=== PATIENT | female | born 1955 | race Asian ===

== ENCOUNTER 2018-02-04 17:30 | Emergency (ER) | payer BC ==
[~2018-02-04] VITALS: Ht 152.4 cm; Wt 56.9 kg
[2018-02-04 17:32] VITALS: BP 132/74; PULSE 61; RESP 16; TEMP 98; O2SAT 100
[2018-02-04] MEDS ORDERED: PANT20TA2 PO (18:09)
[2018-02-04] MEDS ORDERED: ATOR20TA15 PO (18:09)
[2018-02-04] MEDS ORDERED: CYCL10TA PO (18:09)
[2018-02-04] MEDS ORDERED: METHI10 PO (18:09)
[2018-02-04] MEDS ORDERED: KETO10 PO (18:09)
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
[2018-03-04] MEDS ORDERED: METH5TAB4 PO (08:36)
[2018-03-04] MEDS ORDERED: PANT20TA2 PO (08:37)
== END 2018-02-04 18:28 | disposition left against medical advice (07) ==
LOC: PHEFT 17:30
DX: M54.9 Dorsalgia, unspecified (principal)
CPT/HCPCS: 99281; 99282

== ENCOUNTER → 2018-03-04 | Outpatient (CLI) | payer BC ==
[~2018-03-04] MED LIST: ATOR20TA15 PO; CYCL10TA PO; HYDR-3583 PO; KETO10 PO; METH5TAB4 PO; METHI10 PO; PANT20TA2 PO
--- NOTE | 2018-03-04 09:16 | RADRPT ---
EXAM DATE/TIME: 03/04/2018 08:53 [facility] COMPARISON: No previous studies available for comparison. INDICATIONS : Evaluate for pneumonia, pneumothorax, and communicable diseases. Pre-op T-12 Kyphoplasty. MEDICAL HISTORY : None. SURGICAL HISTORY : None. ENCOUNTER: Initial ACUITY: 1 day PAIN SCORE: 0/10 LOCATION: Bilateral chest FINDINGS: Moderate compression deformity involving what appears to be L1 is noted and is indeterminate in age. Kyphosis is noted at the level of the compression deformity. The heart is normal. The pulmonary vascu lar pattern is normal. The lungs are clear. CONCLUSION: 1. Moderate compression deformity involving what appears to be the L1 vertebral body of indeterminate age. Plain films of the lumbar spine would be helpful to confirm this level if not already performed at outside institution. Kyphosis of the spine at this level. 2. No acute cardiopulmonary disease. Devyn Leonardo MD on March 04, 2018 at 9:11 Board Certified Radiologist. This report was verified electronically.
[2018-03-04 09:24] LABS: BILIRUBIN, URINE NEG (NEG); BLOOD, URINE NEG (NEG); GLUCOSE,URINE NEG (NEG); KETONE, URINE NEG (NEG); NITRITE,URINE NEG (NEG); PH, URINE 7.5 (5.0-8.5); URINE COLOR LIGHT-YELLOW (YELLW/STRAW); URINE LEUKOCYTE ESTERASE NEG (NEG)
[2018-03-04 09:27] LABS: PROTHROMBIN TIME - PATIENT 9.9 SEC (9.8-11.6)
[2018-03-04 09:28] LABS: BASOPHIL % 0.6 % (0.0-2.0); EOSINOPHIL # 0.4 TH/MM3 (0-0.4); EOSINOPHIL % 5.8 % (0.0-4.0); HEMATOCRIT 39.1 % (35.0-46.0); HEMOGLOBIN 13.5 GM/DL (11.6-15.3); LYMPH % 29.9 % (9.0-44.0); MEAN CORPUSCULAR HEMOGLOBIN 30.4 PG (27.0-34.0); MEAN CORPUSCULAR HGB CONC 34.5 % (32.0-36.0); MONO % 4.7 % (0.0-8.0); MONOCYTE # 0.3 TH/MM3 (0-0.9); PLATELET COUNT 244 TH/MM3 (150-450); RED BLOOD COUNT 4.44 MIL/MM3 (4.00-5.30); RED CELL DISTRIBUTION WIDTH 13.7 % (11.6-17.2); WHITE BLOOD COUNT 6.8 TH/MM3 (4.0-11.0)
[2018-03-04 09:48] LABS: ALBUMIN 4.4 GM/DL (3.4-5.0); AST (GOT) 19 U/L (15-37); BLOOD UREA NITROGEN 17 MG/DL (7-18); CALCIUM 9.3 MG/DL (8.5-10.1); CHLORIDE 104 MEQ/L (98-107); CREATININE 0.83 MG/DL (0.50-1.00); GLOMERULAR FILTRATION RATE 69 ML/MIN (>89); GLUCOSE,FASTING 85 MG/DL (74-99); SODIUM (NA) 139 MEQ/L (136-145)
[2018-03-04 09:50] LABS: ALT (GPT) 24 U/L (10-53); BICARBONATE 26.9 MEQ/L (21.0-32.0)
[2018-03-04 09:52] LABS: ALKALINE PHOSPHATASE 116 U/L (45-117); TOTAL BILIRUBIN ADULT 0.4 MG/DL (0.2-1.0)
--- NOTE | 2018-03-04 21:02 | EKG ---
Date Performed: 03/04/2018 Time Performed: 08:22:46 PTAGE: 62 years EKG: SINUS BRADYCARDIA POSSIBLE LEFT ATRIAL ENLARGEMENT NONSPECIFIC T-WAVE ABNORMALITY BORDERLIN E ECG NO PREVIOUS TRACING DOCTOR: Binh Longo Interpretating Date/Time 03/04/2018 21:00:23
== END ==
LOC: CPRE 07:55
PROVIDERS: ATTEND Neurological Surgery
DX: Z01.812 Encounter for preprocedural laboratory examination (principal); Z01.811 Encounter for preprocedural respiratory examination; Z01.810 Encounter for preprocedural cardiovascular examination; M48.56XA Collapsed vertebra, not elsewhere classified, lumbar region, initial encounter for fracture; R00.1 Bradycardia, unspecified
CPT/HCPCS: 36415; 71046; 80053; 81001; 85025; 85610; 85730; 87640; 87641; 93005

== ENCOUNTER 2018-03-06 09:34 | Observation (INO) | payer BC ==
[~2018-03-06] VITALS: Ht 152.4 cm; Wt 55.0 kg
[~2018-03-06 09:34] MED LIST changes: -HYDR-3583 PO; -KETO10 PO; -METHI10 PO
[2018-03-06] MEDS ORDERED: METOPROLOL TARTRATE 25 MG TAB PO PRN (10:15)
[2018-03-06] MEDS ORDERED: POVIDONE IODINE 5% (ANTISEPSIS KIT) 4 APPLICATIONS EACH NARE PRN (10:15)
[2018-03-06] MEDS ORDERED: ceFAZolin 2 GM/DEX PREMIX 50 ML IV SCH (10:15)
[2018-03-06] MEDS ORDERED: SODIUM CHLORID 0.9% 500 ML IV PRN (10:15)
[2018-03-06] MEDS ORDERED: CHLORHEXIDINE GLUCONATE 2 % 1 PACK (2 CLOTHS) TOPICAL PRN (10:15)
[2018-03-06] MEDS ORDERED: LACTATED RINGER'S 1000 ML IV PRN (10:15)
[2018-03-06] MEDS ORDERED: BUPIVACAINE/EPINEPHRINE 0.25% PF 10 ML VIAL ONE (12:22)
[2018-03-06] MEDS ORDERED: DO NOT ADM ANY ANTICOAGULANT DRUGS PRN (13:30)
[2018-03-06] MEDS ORDERED: MIDAZOLAM HCL 2 MG/2 ML VIAL ONE (13:32)
[2018-03-06] MEDS ORDERED: HYDR-3583 PO (13:51)
[2018-03-06] MEDS ORDERED: ACETAMINOPHEN 325 MG TAB PO PRN (14:00)
[2018-03-06] MEDS ORDERED: MORPHINE SULFATE 2 MG/ML SYRINGE IV PUSH PRN (14:00)
[2018-03-06] MEDS ORDERED: ACETAMINOPHEN/HYDROcodone 325 MG/10 MG TAB PO PRN ×2 (14:00)
[2018-03-06] MEDS ORDERED: SODIUM CHLOR 0.9% 1000 ML INJ 1,000 ML IV SCH (14:00)
[2018-03-06] MEDS ORDERED: RESP: ALBUTEROL 2.5 MG/3 ML NEB (PRN) INH (14:00)
[2018-03-06] MEDS ORDERED: MAGNESIUM HYDROXIDE SUSP 30 ML CUP PO PRN (14:00)
[2018-03-06] MEDS ORDERED: ONDANSETRON HCL 4 MG/2 ML VIAL IV PUSH PRN (14:00)
[2018-03-06] MEDS ORDERED: CYCLOBENZAPRINE HCL 10 MG TAB PO PRN (14:00)
[2018-03-06] MEDS ORDERED: MORPHINE SULFATE 4 MG/ML INJ IV PUSH PRN (14:00)
[2018-03-06] MEDS ORDERED: MENTHOL LOZENGE BUCCAL PRN (14:00)
[2018-03-06] MEDS ORDERED: cloNIDine HCL 0.1 MG TAB PO/NG PRN (14:00)
[2018-03-06 14:59] VITALS: BP 136/90; PULSE 64; RESP 18; TEMP 97.8; O2SAT 98
[2018-03-06] MEDS ORDERED: ROCURONIUM INJ 50 MG/5 ML SYRINGE IV PUSH ONE (15:02)
[2018-03-06] MEDS ORDERED: ePHEDrine/NS 25 MG/5 ML SYRINGE IV ONE (15:02)
[2018-03-06] MEDS ORDERED: NEOSTIGMINE 5 MG/5 ML SYRINGE IV PUSH ONE (15:02)
[2018-03-06] MEDS ORDERED: GLYCOPYRROLATE 1 MG/5 ML SYRINGE IV PUSH ONE (15:02)
[2018-03-06] MEDS ORDERED: ONDANSETRON HCL 4 MG/2 ML VIAL IV ONE (15:02)
[2018-03-06] MEDS ORDERED: LIDOCAINE HCL 1% PF 5 ML SYRINGE OTHER ONE (15:02)
[2018-03-06] MEDS ORDERED: DEXAMETHASONE SOD PHOS 4 MG/ML VIAL IV ONE (15:02)
[2018-03-06] MEDS ORDERED: PROPOFOL 200 MG/20 ML AMP IV ONE (15:02)
--- NOTE | 2018-03-06 15:06 | RADRPT ---
EXAM DATE/TIME: 03/06/2018 11:56 [facility] COMPARISON: No previous studies available for comparison. INDICATIONS : L1 Kyphoplasty with level localization. MEDICAL HISTORY : Gastroesophageal reflux disease. SURGICAL HISTORY : None. ENCOUNTER: Initial ACUITY: 1 day PAIN SCORE: Non-responsive. LOCATION: Lumbar spine. FINDINGS: Kyphoplasty has been performed at the level of the compression fracture which appears to represent th e L1 vertebral body. CONCLUSION: Kyphoplasty has been performed at the level of the compression fracture which appears to represent the L1 vertebral body. Devyn Leonardo MD on March 06, 2018 at 15:03 Board Certified Radiologist. This report was verified electronically.
--- NOTE | 2018-03-06 16:11 | PD.OP ---
Operative Report Date of Surgery: Mar 06, 2018 Preoperative Diagnosis: L1 compression fracture Postoperative Diagnosis: L1 compression fracture Procedure: L1 kyphoplasty Anesthesia: general endotracheal Surgeon: Matt Foster Residential Carpet Installer(s): PING Operation and Findings: INDICATIONS FOR THE PROCEDURE Ms Vincent is a 62 year-old female who presented with intractable pain related to a compression fracture. The patient has failed nonsurgical management and a kyphoplasty was indicated as the most appropriate form of treatment. AT the operative room the levels were carefully counted using AP and lateral xrays with the C arm and the fracture was determined to be L1. The [id number] details of the procedure, indications, alternatives, risks and potential complications were fully discussed with the patient. The patient fully understood. All The questions were answered. No guarantees were given. The patient voiced requesting the procedure and provided informed consents. The patient was offered the alternative of delaying the procedure and continuing with nonsurgical management. DETAILS OF THE SURGICAL PROCEDURE The patient was brought to the operating room and after the induction of general anesthesia, endotracheal intubation was performed. A Martínez catheter and bilateral LEANNA hose and sequential compression devices were placed and kept throughout the procedure. The patient was positioned prone on the Adolfo table over gel rods. All pressure points were carefully padded with egg crate mattress. The eyes were tapped shut after ointment was applied by the anesthesiologist to prevent corneal abrasion. A Dayanara hugger was placed over the exposed lower body to maintain control of the core body temperature. The lumbar region was prepped and draped in the usual sterile fashion. The C-arms were brought to the field and simultaneous AP and lateral x-rays were obtained. The levels were carefully counted and the pedicles were marked over the skin. An entry point was selected 1 centimeter superior and 1 centimeter lateral to the pedicle. Two small incisions were outlined on the skin and infiltrated with 1% lidocaine with epinephrine in 1:100,000 dilution. Initially, two small skin incisions were made with a #11 blade. Then, Jamshidi needles were carefully advanced to the entrance of the pedicle of L1, and then into the vertebral body under continuous fluoroscopic guidance. K-wires were placed inside the vertebral body of and the needles were carefully removed. A drill was used to create a trough into the vertebral body L1 to insert a cannula. Once the cannula was located through the pedicle, the drill was removed and bilateral balloons were inserted into the vertebral body for vertebral augmentation. A careful expansion of the balloon under continuous fluoroscopic guidance and manometric evaluation allowed expansion of the vertebral body. Then, the balloons were deflated and carefully removed and the voids created in the vertebral body were filled with bone cement under fluoroscopic visualization. A very good expansion of the vertebral bodies was achieved without evidence of extravasation or cement or other complications. The cannulas were then removed. The incisions were closed using a single stitch at each incision. Dermabond was applied to the skin. At the end of the procedure, the sponge, needle, instrument counts correct. The estimated blood loss as minimal. No intraoperative complications occurred. The patient received prophylactic antibiotics. The patient was then extubated and transferred to the recovery room in stable condition. Matt Foster MD Mar 06, 2018 16:11
[2018-03-06] MEDS ORDERED: ceFAZolin 2 GM PREMIX 50 ML IV SCH (20:00)
[2018-03-06] MEDS ORDERED: DOCUSATE SODIUM 100 MG CAP PO SCH (21:00)
[2018-03-07] MEDS ORDERED: PANTOPRAZOLE SOD 40 MG DELAYED RELEASE TAB PO SCH (09:00)
== END 2018-03-06 15:03 | disposition home or self-care (01) ==
LOC: HSDC 09:34 → HSDI 14:54
PROVIDERS: ADMIT Neurological Surgery; ATTEND Neurological Surgery
DX: S32.010A Wedge compression fracture of first lumbar vertebra, initial encounter for closed fracture (principal); M54.5 Low back pain; E07.9 Disorder of thyroid, unspecified; K21.9 Gastro-esophageal reflux disease without esophagitis
CPT/HCPCS: 01936; 22514; 72100; J0690; J1100; J2250; J2405; J2710; J3010; J7120

== ENCOUNTER 2018-10-13 23:02 | Observation (INO) ==
[2018-10-13] MEDS ORDERED: Sod Chloride 0.9% Inj 1,000 ML IV.CONT SCH (23:15)
[2018-10-13] MEDS ORDERED: Morphine Inj 4 MG/ML Vial IV.PUSH ONE (23:15)
[2018-10-13] MEDS ORDERED: Pantoprazole Inj 40 MG Vial IV.PUSH ONE (23:17)
--- NOTE | 2018-10-13 23:19 | ED ---
HPI General Chief Complaint: Abdominal Pain Stated Complaint: upper abd pain vomiting x 7 pm Time Seen by Provider: 10/13/18 23:15 Source: patient and family Mode of arrival: ambulatory Limitations: no limitations History of Present Illness MD complaint: Reports abdominal pain Onset (ago): hour(s) (onset around 6:30 to 7 PM) Pain Consistency: constant Location: Reports RUQ and epigastric Severity: severe Severity scale (1-10): 6 Quality: Reports cramping, aching and fullness Radiation: Reports none Migration to: Reports no migration Relieving factors: nothing Exacerbating factors: nothing Context: Denies foreign travel, possible food poisoning, sick contacts, recent antibiotic use, recent surgery/procedure, recent injury and history of similar episodes Associated symptoms: Reports nausea and vomiting; Denies diarrhea, fever, chills , constipation, dysuria, hematemesis, hematochezia, melena, hematuria, anorexia and syncope Treatments prior to arrival: Denies NSAIDs, prescription analgesics and antacids Related Data Hx Last Menstrual Period: post menopausal Home Medications Medication Instructions Recorded Confirmed aspirin 81 mg PO DAILY 10/14/18 10/14/18 atorvastatin 20 mg PO QPM 10/14/18 10/14/18 pantoprazole 20 mg PO DAILY 10/14/18 10/14/18 Allergies Allergy/AdvReac Type Severity Reaction Status Date / Time No Known Allergies Allergy Unknown Uncoded 02/04/18 17:35 Review of Systems ROS: all other systems reviewed are negative PMFSH History History Provided By: Patient and Medical Record (kyphoplasty) Medical History Medical History High cholesterol (Acute) Hyperthyroidism (Acute) Reflux gastritis (Acute) Surgical History Surgical History H/O kyphoplasty (Acute) Social History Social History Substance History: No History of Abuse Smoking Status: Former smoker How Often Do You Have a Drink Containing Alcohol: Never Recent Out of Country Travel within the Last 8 Weeks: No Exam Narrative Exam Narrative: GENERAL: Well-nourished, well-developed patient. SKIN: Focused skin assessment warm/dry. HEAD: Normocephalic. EYES: No scleral icterus. No injection or drainage. NECK: Supple, trachea midline. No JVD or lymphadenopathy. CARDIOVASCULAR: Regular rate and rhythm without murmurs, gallops, or rubs. RESPIRATORY: Breath sounds equal bilaterally. No accessory muscle use. GASTROINTESTINAL: Abdomen soft, RLQ tenderness to palpation, nondistended. MUSCULOSKELETAL: No cyanosis, or edema. BACK: Nontender without obvious deformity. No CVA tenderness. Course Initial Documented Vital Signs Temperature 97.7 F 10/13/18 23:07 Pulse Rate 58 L 10/13/18 23:07 Respiratory Rate 20 10/13/18 23:07 Blood Pressure 116/55 L 10/13/18 23:07 Pulse Oximetry 99 10/13/18 23:07 Last Documented Vital Signs Temperature 97.7 F 10/13/18 23:07 Pulse Rate 61 10/14/18 01:05 Respiratory Rate 20 10/14/18 01:05 Blood Pressure 132/72 10/14/18 01:05 Pulse Oximetry 98 10/14/18 01:05 Medical Decision Making MDM Narrative Medical decision making narrative: 62-year-old female presents to the emergency department with localized right lower quadrant tenderness with associated nausea and vomiting stomach is taking any blood thinning agents other than a low -dose aspirin daily. Patient has history of high cholesterol takes atorvastatin and Protonix daily previously had thyroid issues and no longer takes medication for this. Patient is otherwise in good health. Patient states felt well until this evening and symptoms progressively worsened and localized into the right lower quadrant. No dysuria frequency urgency or hematuria no flank pain. No upper abdominal pain. No chest pain no shortness of breath. No diarrhea or constipation melena hematochezia. No history of abdominal surgeries. IV access obtained specimens collected and sent for resulting patient administered Zofran 4 mg IV along with morphine sulfate 2 mg IV and IV maintenance fluids CBC with automated differential white count is 13,200 with left shift 88.4% neutrophils chemistries are grossly within normal limits urinalysis is unremarkable Patient continues to complain of pain 7/10 in intensity given additional dose of morphine sulfate @ 12:55 CT c/w early appendicitis per reading radiologist localized RLQ pain to palpation n/v no diarrhea; patient ordered Zosyn IV piggyback x1 dose call placed to general surgery discussed with Dr Lyons admit to medicine iv fluids pain meds continue zosyn -- will do surgery later today probably after 12 hours case discussed with and accepted by medicine service, Dr Flores, for OBS and gen surgery consult to Dr Lyons Medical Screen Exam Complete: Yes Emergency Medical Condition: Yes Differential Diagnosis Differential Diagnosis: Abdominal pain biliary colic appendicitis renal colic Medical Records Medical records reviewed: Yes I reviewed the patient's medical records. Lab Data Result diagrams: 10/13/18 23:30 10/13/18 23:30 Lab Results 10/13/18 10/13/18 10/14/18 Range/Units 23:30 23:30 00:45 CBC w Diff Auto diff final WBC 13.2 H (4.0-11.0) th/mm3 RBC 4.43 (4.00-5.30) mil/mm3 Hgb 14.0 (11.6-15.3) gm/dL Hct 39.7 (35.0-46.0) % MCV 89.7 (80.0-100.0) fL MCH 31.6 (27.0-34.0) pg MCHC 35.3 (32.0-36.0) % RDW 12.6 (11.6-17.2) % Plt Count 244 (150-450) th/mm3 MPV 8.2 (7.0-11.0) fL Neut % (Auto) 88.4 H (16.0-70.0) % Lymph % (Auto) 8.1 L (9.0-44.0) % [place] % (Auto) 1.7 (0.0-8.0) % Eos % (Auto) 0.7 (0.0-4.0) % Baso % (Auto) 1.1 (0.0-2.0) % Neut # (Auto) 11.7 H (1.8-7.7) th/mm3 Lymph # (Auto) 1.1 (1.0-4.8) th/mm3 [place] # (Auto) 0.2 (0.0-0.9) th/mm3 Eos # (Auto) 0.1 (0.0-0.4) th/mm3 Baso # (Auto) 0.1 (0.0-0.2) th/mm3 WBC Differential . Differential Comment . Sodium 140 (136-145) meq/L Potassium 3.5 (3.5-5.1) meq/L Chloride 104 (98-107) meq/L Carbon Dioxide 26.3 (21.0-32.0) meq/L Anion Gap 10 (5-15) meq/L BUN 15 (7-18) mg/dL Creatinine 0.88 (0.50-1.00) mg/dL Estimated GFR 65 L (>89) mL/min Random Glucose 110 H (74-106) mg/dL Calcium 9.6 (8.5-10.1) mg/dL Magnesium 2.2 (1.5-2.5) mg/dL Total Bilirubin 0.5 (0.2-1.0) mg/dL AST 23 (15-37) U/L ALT 29 (10-53) U/L Alkaline Phosphatase 67 (45-117) U/L Troponin I Less than 0.02 L (0.02-0.05) ng/mL Total Protein 7.8 (6.4-8.2) g/dL Albumin 4.3 (3.4-5.0) g/dL Lipase 109 (73-393) U/L Urine Color Yellow (Yellw/Straw) Urine Clarity Clear (Clear) Urine pH 7.5 (5.0-8.5) Ur Specific [place] Less/equal 1.005 (1.002-1.035) Urine Protein Negative (Neg-Trace) mg/dL Urine Glucose (UA) Negative (Negative) mg/dL Urine Ketones Negative (Negative) mg/dL Urine Occult Blood Trace (Negative) Urine Nitrate Negative (Negative) Urine Bilirubin Negative (Negative) Urine Urobilinogen 0.2 (Less than 2) mg/dL Ur Leukocyte Esterase Negative (Negative) Urine RBC 0-3 (0-3) /hpf Urine WBC 0-5 (0-5) /hpf Ur Squamous Epith Cells 0-5 (0-5) /hpf Micro UA Comment Culture not ind Ur Microscopic Review Microscopic reviewed Urine Culture Comments Culture not ind Imaging Data Radiologist's impression: Chest X-Ray 10/13/18 23:15 CONCLUSION: No acute cardiopulmonary disease identified. Abdomen/Pelvis CT 10/14/18 23:15 CONCLUSION: 1. Fluid-filled appendix with borderline dilatation. Evaluation for subtle surrounding inflammatory changes difficult this case due to the mild diffuse stranding throughout the abdominal mesentery. Punctate calcific density at the base of the appendix suggesting a small appendicolith. Findings are suspicious for early appendicitis. No evidence of abscess or free air. 2. Nonspecific mild distal gastric wall thickening. Discharge Plan Discharge Disposition Patient Disposition: 30 Still Patient Discharge Condition Condition: Stable Discharge Details Diagnosis: Appendicitis Physicians Team ED Provider: Lilibeth Ibrahim Primary Care Provider: Mary Borden Attending Provider: Alba Flores Other Providers: Juan Lyons ED Status: Admitted Observation Patient
[2018-10-13 23:36] LABS: Baso # (Auto) 0.1 th/mm3 (0.0-0.2); Baso % (Auto) 1.1 % (0.0-2.0); Eos # (Auto) 0.1 th/mm3 (0.0-0.4); Eos % (Auto) 0.7 % (0.0-4.0); Hematocrit 39.7 % (35.0-46.0); Lymph # (Auto) 1.1 th/mm3 (1.0-4.8); Lymph % (Auto) 8.1 % (9.0-44.0); Mean Corpuscular HGB Conc 35.3 % (32.0-36.0); Mean Corpuscular Hemoglobin 31.6 pg (27.0-34.0); Mean Corpuscular Volume 89.7 fL (80.0-100.0); Mean Platelet Volume 8.2 fL (7.0-11.0); Mono # (Auto) 0.2 th/mm3 (0.0-0.9); Mono % (Auto) 1.7 % (0.0-8.0); Neut # (Auto) 11.7 th/mm3 (1.8-7.7); Neut % (Auto) 88.4 % (16.0-70.0); Platelet Count 244 th/mm3 (150-450); Red Blood Count 4.43 mil/mm3 (4.00-5.30); Red Cell Distribution Width 12.6 % (11.6-17.2); White Blood Count 13.2 th/mm3 (4.0-11.0)
[2018-10-13 23:41] LABS: Chloride 104 meq/L (98-107); Potassium 3.5 meq/L (3.5-5.1); Sodium 140 meq/L (136-145)
[2018-10-13 23:44] LABS: Calcium 9.6 mg/dL (8.5-10.1)
[2018-10-13 23:45] LABS: Albumin 4.3 g/dL (3.4-5.0); Anion Gap 10 meq/L (5-15); Blood Urea Nitrogen 15 mg/dL (7-18); Carbon Dioxide 26.3 meq/L (21.0-32.0); Glucose,Random 110 mg/dL (74-106); Lipase 109 U/L (73-393); Magnesium 2.2 mg/dL (1.5-2.5)
[2018-10-13 23:47] LABS: Alanine Aminotransferase 29 U/L (10-53); Aspartate Aminotransferase 23 U/L (15-37); Glomerular Filtration Rate 65 mL/min (>89)
[2018-10-13 23:49] LABS: Total Protein 7.8 g/dL (6.4-8.2)
[2018-10-13 23:50] LABS: Alkaline Phosphatase 67 U/L (45-117)
--- NOTE | 2018-10-13 23:54 | XR ---
EXAM DATE: 10/13/2018 11:45 PM EST AGE/SEX: 62 years / Female INDICATIONS: Upper abdominal pain and nausea. CLINICAL DATA: This is the patient's initial encounter. Patient reports that signs and symptoms have been present for 1 day and indicates a pain score of 5/10. MEDICAL/SURGICAL HISTORY: None. None. COMPARISON: No prior exams available for comparison. FINDINGS: Single AP view of the chest. The lungs are clear. Cardiomediastinal silhouette within nor mal limits. No evidence of pleural effusion or pneumothorax. CONCLUSION: No acute cardiopulmonary disease identified. Electronically signed by: Eric Murphy MD 10/13/2018 11:53 PM EST
--- NOTE | 2018-10-14 00:44 | CT ---
EXAM DATE: 10/14/2018 12:18 AM EST AGE/SEX: 62 years / Female INDICATIONS: Epigastric pain. Vomiting. CLINICAL DATA: This is the patient's initial encounter. Patient reports that signs and symptoms have been present for 1 day and indicates a pain score of 10/10. MEDICAL/SURGICAL HISTORY: None. None. ORAL CONTRAST: No oral contrast ingested. RADIATION DOSE: 5.15 CTDI (mGy) COMPARISON: No prior exams available for comparison. TECHNIQUE: Multiple contiguous axial images were obtained through the abdomen and pelvis following b olus infusion of 100 ml Omnipaque 350 (iohexol) nonionic water-soluble contrast as a single exam do se. No oral contrast ingested. Using automated exposure control and adjustment of the mA and/or kV a ccording to patient size, radiation dose was kept as low as reasonably achievable to obtain optimal d iagnostic quality images. DICOM format image data is available electronically for review and compari son. FINDINGS: Lower Lungs: The visualized lower lungs are clear. Liver: The liver has a homogeneous density without space-occupying lesion. There is no dilation of th e biliary tree. Spleen: Homogeneous density without enlargement. Pancreas: Unremarkable without mass or calcification. Kidneys: Normal in size and shape. No evidence of mass or hydronephrosis. Adrenal Glands: Unremarkable. Aorta: Atherosclerotic disease and calcification. Diameter within normal limits. Bowel/Mesentery: The appendix is fluid-filled, measuring 7 to 8 mm in diameter. There is mild strand ing in the adjacent fat but there is same degree of mild stranding diffusely in the mesenteric fat. T here is punctate hyperdensity at the base of the appendix suggesting a small appendicolith. Nonspecif ic mild diffuse wall thickening of the distal stomach. No evidence of bowel dilatation. No free air o r free fluid. Scattered colonic diverticula. No evidence of acute diverticulitis. Abdominal Wall: Intact.. Retroperitoneum: No evidence of adenopathy in the retrocrural, para-aortic, or deep pelvic regions. Bladder: Contours are smooth. Reproductive Organs: No abnormal masses or calcifications seen. Inguinal: The inguinal region is unremarkable without evidence of adenopathy. Bony Structures: Degenerative findings of the lumbar spine facet joints. Old L1 vertebral body fract ure with evidence of prior kyphoplasty or vertebroplasty. CONCLUSION: 1. Fluid-filled appendix with borderline dilatation. Evaluation for subtle surrounding inflammatory changes difficult this case due to the mild diffuse stranding throughout the abdominal mesentery. Pun ctate calcific density at the base of the appendix suggesting a small appendicolith. Findings are mekhi picious for early appendicitis. No evidence of abscess or free air. 2. Nonspecific mild distal gastric wall thickening. Electronically signed by: Eric Murphy MD 10/14/2018 12:42 AM EST
[2018-10-14] MEDS ORDERED: Piperacil/Tazo 4.5 GM Premix 4.5 GM/100 ML BAG IV.SIG ONE (00:47)
[2018-10-14 00:51] LABS: Bilirubin,Urine Negative (Negative); Clarity,Urine Clear (Clear); Color,Urine Yellow (Yellw/Straw); Glucose,Urine (UA) Negative (Negative); Leukocyte Esterase,Urine Negative (Negative); Nitrite,Urine Negative (Negative); PH,Urine 7.5 (5.0-8.5); Specific Gravity,Urine Less/Equal 1.005 (1.002-1.035); Urobilinogen,Urine 0.2 mg/dL (Less than 2)
[2018-10-14 00:54] LABS: RBC,Urine 0-3 /hpf (0-3)
[2018-10-14] MEDS ORDERED: Morphine Inj 4 MG/ML Vial IV.PUSH ONE (00:54)
[2018-10-14 00:55] LABS: Squamous Epithelial Cell,Urine 0-5 /hpf (0-5); WBC,Urine 0-5 /hpf (0-5)
[2018-10-14] MEDS ORDERED: Morphine Inj 4 MG/ML Vial IV.PUSH PRN (01:19)
[2018-10-14] MEDS ORDERED: Bisacodyl 10 MG Supp RECTAL PRN (01:20)
[2018-10-14] MEDS ORDERED: Acetaminophen 325 MG Tablet PO PRN (01:20)
[2018-10-14] MEDS ORDERED: Sodium Chlor 0.9% Inj 500 ML IV.SIG SCH ×2 (02:00→14:00)
[2018-10-14] MEDS: Sod Chloride 0.9% Inj 1,000 ML IV.CONT SCH ×2 (06:14→17:04)
[2018-10-14] MEDS: Piperacil/Tazo 3.375 GM Premix 50 ML IV.SIG SCH ×2 (08:52→16:22)
[2018-10-14] MEDS ORDERED: Senna/Docusate Sodium 8.6/50 MG Tablet PO SCH (09:00)
--- NOTE | 2018-10-14 10:01 | P.HP ---
History of Present Illness Primary Care Physician: Mary Borden History of Present Illness: 62-year-old female being admitted for acute appendicitis. Patient was in her usual state of health until sometime around 730 last night which began experiencing abdominal pain. Says at its worst the pain worsened to intensity of 8 8/10. Took some Tums to try to alleviate the pain but did not help at all. Reported feeling some chills. Did have some nausea and vomiting but no diarrhea. Did have a normal bowel movement that was nonbloody nor tarry. Emergency department she had a mild leukocytosis. CT scan showed findings suggestive of appendicitis with no perforation. Was started on antibiotics. Surgery has been consulted. Case discussed with surgery who will take the patient to the OR today in a few hours. Review of Systems All other systems reviewed negative except as stated in HPI PMFSH - History History Provided By: Patient - Medical History Medical History: Medical History (Last Reviewed 10/14/18 @ 09:56 by German Boston MD) High cholesterol Hyperthyroidism Reflux gastritis - Surgical History Surgical History: Surgical History (Last Reviewed 10/14/18 @ 09:56 by German Boston MD) H/O kyphoplasty - Family History Family History: Family History (Last Updated 10/14/18 @ 09:56 by German Boston MD) Other Diabetes - Social History I have reviewed the patient's Social History: Yes - Tobacco History Second Hand Smoke Exposure: No Tobacco Use In Past 30 Days: No Smoking Status: Former smoker Smoking End Date: 10 yrs ago - Alcohol History How Often Do You Have a Drink Containing Alcohol: Never - Substance Use History Substance History: No History of Abuse - Travel History Recent Travel Out of the Country Within the Last 8 Weeks: No - Immunization History Tetanus Immunization: <5 Years Hx Influenza Vaccine This Season: Yes Medications and Allergies Active Medications: Active Medications Acetaminophen (Tylenol) 650 mg PO Q4H PRN PRN Reason: Temp > 100.4 Al Hydroxide/Mg Hydroxide (Milk Of Magnesia Liq) 30 ml PO Q12H PRN PRN Reason: Mild Constipation Atorvastatin Calcium (Lipitor) 20 mg PO QPM YESSENIA Bisacodyl (Dulcolax Supp) 10 mg RECTAL DAILY PRN PRN Reason: SEVERE CONSITIPATION Sodium Chloride (Ns Inj) 1,000 mls @ 70 mls/hr IV.CONT .[id number] [facility] Last Admin: 10/14/18 06:14 Dose: 70 mls/hr Piperacillin/Tazobactam/Dextrose (Zosyn 3.375 Gm Premix) 50 mls @ 100 mls/hr IV.SIG Q6H [facility] Last Infusion: 10/14/18 09:50 Dose: Infused Lactulose (Lactulose Liq) 30 ml PO DAILY PRN PRN Reason: SEVERE CONSITIPATION Morphine Sulfate (Morphine Inj) 4 mg IV.PUSH Q4H PRN PRN Reason: pain 6-10 Ondansetron HCl (Zofran Inj) 4 mg IV.PUSH Q6H PRN PRN Reason: NAUSEA OR VOMITING Pantoprazole Sodium (Protonix) 20 mg PO DAILY [facility] Senna/Docusate Sodium (Ml-Colace) 1 tab PO BID [facility] Last Admin: 10/14/18 08:50 Dose: 1 tab Sennosides (Senokot) 17.2 mg PO Q12H PRN PRN Reason: Moderate Constipation Sodium Chloride (Ns Flush) 2 ml IV.FLUSH PRN PRN PRN Reason: FLUSH AFTER USING IV ACCESS Last Admin: 10/13/18 23:45 Dose: 2 ml Allergies Allergy/AdvReac Type Severity Reaction Status Date / Time No Known Allergies Allergy Unknown Uncoded 02/04/18 17:35 Home Medications Medication Instructions Recorded Confirmed Type aspirin 81 mg PO DAILY 10/14/18 10/14/18 History atorvastatin 20 mg PO QPM 10/14/18 10/14/18 History pantoprazole 20 mg PO DAILY 10/14/18 10/14/18 History Exam Vital signs: Vital Signs 10/13/18 23:07 10/14/18 00:05 10/14/18 00:11 Temperature 97.7 F Pulse Rate 58 L 46 L 59 L Respiratory Rate 20 18 Blood Pressure 116/55 L 119/64 Pulse Oximetry 99 93 L 10/14/18 01:05 10/14/18 02:56 10/14/18 04:00 Temperature 98.1 F Pulse Rate 61 62 59 L Respiratory Rate 20 20 16 Blood Pressure 132/72 116/58 L 117/55 L Pulse Oximetry 98 97 98 10/14/18 08:00 Temperature 99.8 F H Pulse Rate 64 Respiratory Rate 16 Blood Pressure 112/59 L Pulse Oximetry 94 L Intake & Output 10/13/18 10/14/18 10/14/18 18:59 06:59 18:59 Intake Total 1500 / 1500 50 / 50 Balance 1500 / 1500 50 / 50 Weight 52.8 kg Intake: IV 1500 / 1500 50 / 50 NS Inj 1,000 ML @ 125 mls/hr IV 400 / 400 .CONT .Q8H YESSENIA Rx#:[id number] Zosyn 3.375 GM Premix 50 ML @ 50 / 50 100 mls/hr IV.SIG Q6H YESSENIA Rx#: [id number] Zosyn 4.5 GM Premix 4.5 gm In 100 / 100 100 ml @ 200 mls/hr IV.SIG ONCE ONE Rx#:[id number] NS Inj 500 ML @ 1000 mls/hr IV. 1000 / 1000 SIG BOLUS YESSENIA Rx#:[id number] Oral 0 / 0 Other: # Voids 1 Date of Last Bowel Movement 10/13/18 10/13/18 Weight On Admission 54.1 kg Narrative: VS: afebrile GENERAL: Well-nourished middle-aged female, lying in bed, no acute distress SKIN: Warm and dry. EYES: No scleral icterus. No injection or drainage. ENT: No nasal bleeding or discharge. Mucous membranes pink and moist. CARDIOVASCULAR: Regular rate and rhythm. no murmurs RESPIRATORY: No accessory muscle use. Clear to auscultation. Breath sounds equal bilaterally. GASTROINTESTINAL: Abdomen soft, has moderate tenderness to palpation over the suprapubic area and right lower quadrant, nondistended, nontender no other quadrants otherwise Extremities: No clubbing, cyanosis, or edema. No obvious deformities. MUSCULOSKELETAL: adequate muscle bulk and tone for age and habitus NEUROLOGICAL: Awake and alert. No obvious cranial nerve deficits. No facial droop nor slurred speech noted. PSYCHIATRIC: Appropriate mood and affect; insight and judgment normal. Results - Labs CBC & Chem 7: 10/13/18 23:30 10/13/18 23:30 Labs: Laboratory Results - last 24 hr 10/13/18 10/13/18 10/14/18 23:30 23:30 00:45 CBC w Diff Auto diff final WBC 13.2 H RBC 4.43 Hgb 14.0 Hct 39.7 MCV 89.7 MCH 31.6 MCHC 35.3 RDW 12.6 Plt Count 244 MPV 8.2 Neut % (Auto) 88.4 H Lymph % (Auto) 8.1 L [place] % (Auto) 1.7 Eos % (Auto) 0.7 Baso % (Auto) 1.1 Neut # (Auto) 11.7 H Lymph # (Auto) 1.1 [place] # (Auto) 0.2 Eos # (Auto) 0.1 Baso # (Auto) 0.1 WBC Differential . Differential Comment . Sodium 140 Potassium 3.5 Chloride 104 Carbon Dioxide 26.3 Anion Gap 10 BUN 15 Creatinine 0.88 Estimated GFR 65 L Random Glucose 110 H Calcium 9.6 Magnesium 2.2 Total Bilirubin 0.5 AST 23 ALT 29 Alkaline Phosphatase 67 Troponin I Less than 0.02 L Total Protein 7.8 Albumin 4.3 Lipase 109 Urine Color Yellow Urine Clarity Clear Urine pH 7.5 Ur Specific [place] Less/equal 1.005 Urine Protein Negative Urine Glucose (UA) Negative Urine Ketones Negative Urine Occult Blood Trace Urine Nitrate Negative Urine Bilirubin Negative Urine Urobilinogen 0.2 Ur Leukocyte Esterase Negative Urine RBC 0-3 Urine WBC 0-5 Ur Squamous Epith Cells 0-5 Micro UA Comment Culture not ind Ur Microscopic Review Microscopic reviewed Urine Culture Comments Culture not ind - Imaging Impressions Chest X-Ray 10/13/18 23:15 CONCLUSION: No acute cardiopulmonary disease identified. Abdomen/Pelvis CT 10/14/18 23:15 CONCLUSION: 1. Fluid-filled appendix with borderline dilatation. Evaluation for subtle surrounding inflammatory changes difficult this case due to the mild diffuse stranding throughout the abdominal mesentery. Punctate calcific density at the base of the appendix suggesting a small appendicolith. Findings are suspicious for early appendicitis. No evidence of abscess or free air. 2. Nonspecific mild distal gastric wall thickening. Caprini VTE Risk Assessment Caprini VTE Risk Assessment: Moderate/High Risk (score >= 2) VTE Pharmacological Exception Reason: Postop bleeding Caprini Risk Assessment Model: Point Value = 1 Point Value = 2 Point Value = 3 Point Value = 5 Age 41-60 Minor surgery BMI > 25 kg/m2 Swollen legs Varicose veins or History of unexplained or recurrent spontaneous Oral contraceptives or hormone replacement Sepsis (< 1 month) Serious lung disease, including pneumonia (< 1 month) Abnormal pulmonary function Acute myocardial infarction Congestive heart failure (< 1 month) History of inflammatory bowel disease Medical patient at bed rest Age 61-74 Arthroscopic surgery Major open surgery (> 45 min) Laparoscopic surgery (> 45 min) Malignancy Confined to bed (> 72 hours) Immobilizing plaster cast Central venous access Age >= 75 History of VTE Family history of VTE Factor V Leiden Prothrombin [id number] Lupus anticoagulant Anticardiolipin antibodies Elevated serum homocysteine Heparin-induced thrombocytopenia Other congenital or acquired thrombophilia Stroke (< 1 month) Elective arthroplasty Hip, pelvis, or leg fracture Acute spinal cord injury (< 1 month) Prophylaxis Regimen: Total Risk Factor Score Risk Level Prophylaxis Regimen 0-1 Low Early ambulation 2 Moderate Order ONE of the following: *Sequential Compression Device (SCD) *Heparin 5000 units SQ BID 3-4 Higher Order ONE of the following medications: *Heparin 5000 units SQ TID *Enoxaparin/Lovenox 40 mg SQ daily (WT < 150 kg, CrCl > 30 mL/min) *Enoxaparin/Lovenox 30 mg SQ daily (WT < 150 kg, CrCl > 10-29 mL/min) *Enoxaparin/Lovenox 30 mg SQ BID (WT < 150 kg, CrCl > 30 mL/min) AND/OR *Sequential Compression Device (SCD) 5 or more Highest Order ONE of the following medications: *Heparin 5000 units SQ TID (Preferred with Epidurals) *Enoxaparin/Lovenox 40 mg SQ daily (WT < 150 kg, CrCl > 30 mL/min) *Enoxaparin/Lovenox 30 mg SQ daily (WT < 150 kg, CrCl > 10-29 mL/min) *Enoxaparin/Lovenox 30 mg SQ BID (WT < 150 kg, CrCl > 30 mL/min) AND *Sequential Compression Device (SCD) Assessment and Plan - Plan 62-year-old patient from being admitted for acute appendicitis Appendicitis Nonperforated, on antibiotics at this time, general surgery planning to take the patient to the OR in a few hours Trend H&H and white count in a.m. Pain control w/ IV morphine Continue home lipitor and PPI SCDs for now, anticoagulation to be started once cleared with surgery should the patient remain hospitalized Addendum: Tolerated laparoscopic appendectomy well. Tolerating p.o. intake and pain is tolerable. Patient has met maximum benefit from hospitalization is clinically stable for discharge.
--- NOTE | 2018-10-14 11:45 | P.CONGS ---
[facility] Gen Surgery Consult Note Consult date: 10/14/18 Reason for consult: other (acute appendicitits) Requesting physician: Alba Flores Narrative: This is a 62 year old female with a past medical history of hyperthyroidism and dyslipidemia who presented to the ED last evening with complaints of acute onset of abdominal pain with associated nausea and vomiting that began about 1900 yesterday. She was in her usual state of health prior. The patient reports that the pain was originally in her periumbilical area but now has radiated to her RIGHT lower abdomen. She reports chills. A CT abdomen/pelvis was obtained which shows signs of early appendicitis. Her WBC is elevated. A General Surgery consultation has been requested. Review of Systems All other systems reviewed negative except as stated in [facility] PMF - History History Provided By: Patient - Medical History Medical History: Medical History (Last Reviewed 10/14/18 @ 11:42 by MALIHA Self) High cholesterol Hyperthyroidism Reflux gastritis - Surgical History Surgical History: Surgical History (Last Reviewed 10/14/18 @ 11:42 by MALIHA Self) H/O kyphoplasty - Family History Family History: Family History (Last Updated 10/14/18 @ 09:56 by German Boston MD) Other Diabetes - Tobacco History Second Hand Smoke Exposure: No Tobacco Use In Past 30 Days: No Smoking Status: Former smoker Smoking End Date: 10 yrs ago - Alcohol History How Often Do You Have a Drink Containing Alcohol: Never - Substance Use History Substance History: No History of Abuse - Travel History Recent Travel Out of the Country Within the Last 8 Weeks: No - Immunization History Tetanus Immunization: <5 Years Hx Influenza Vaccine This Season: Yes Medications and Allergies Allergies Allergy/AdvReac Type Severity Reaction Status Date / Time No Known Allergies Allergy Unknown Uncoded 02/04/18 17:35 Home Medications Medication Instructions Recorded Confirmed Type aspirin 81 mg PO DAILY 10/14/18 10/14/18 History atorvastatin 20 mg PO QPM 10/14/18 10/14/18 History pantoprazole 20 mg PO DAILY 10/14/18 10/14/18 History Active Medications: Active Medications Acetaminophen (Tylenol) 650 mg PO Q4H PRN PRN Reason: Temp > 100.4 Al Hydroxide/Mg Hydroxide (Milk Of Magnesia Liq) 30 ml PO Q12H PRN PRN Reason: Mild Constipation Atorvastatin Calcium (Lipitor) 20 mg PO DAILY@1800 [facility] Bisacodyl (Dulcolax Supp) 10 mg RECTAL DAILY PRN PRN Reason: SEVERE CONSITIPATION Sodium Chloride (Ns Inj) 1,000 mls @ 70 mls/hr IV.CONT .[id number] [facility] Last Admin: 10/14/18 06:14 Dose: 70 mls/hr Piperacillin/Tazobactam/Dextrose (Zosyn 3.375 Gm Premix) 50 mls @ 100 mls/hr IV.SIG Q6H [facility] Last Infusion: 10/14/18 09:50 Dose: Infused Lactulose (Lactulose Liq) 30 ml PO DAILY PRN PRN Reason: SEVERE CONSITIPATION Morphine Sulfate (Morphine Inj) 4 mg IV.PUSH Q4H PRN PRN Reason: pain 6-10 Ondansetron HCl (Zofran Inj) 4 mg IV.PUSH Q6H PRN PRN Reason: NAUSEA OR VOMITING Pantoprazole Sodium (Protonix) 20 mg PO DAILY [facility] Senna/Docusate Sodium (Ml-Colace) 1 tab PO BID [facility] Last Admin: 10/14/18 08:50 Dose: 1 tab Sennosides (Senokot) 17.2 mg PO Q12H PRN PRN Reason: Moderate Constipation Sodium Chloride (Ns Flush) 2 ml IV.FLUSH PRN PRN PRN Reason: FLUSH AFTER USING IV ACCESS Last Admin: 10/13/18 23:45 Dose: 2 ml Exam Vital signs: Vital Signs 10/13/18 23:07 10/14/18 00:05 10/14/18 00:11 Temperature 97.7 F Pulse Rate 58 L 46 L 59 L Respiratory Rate 20 18 Blood Pressure 116/55 L 119/64 Pulse Oximetry 99 93 L 10/14/18 01:05 10/14/18 02:56 10/14/18 04:00 Temperature 98.1 F Pulse Rate 61 62 59 L Respiratory Rate 20 20 16 Blood Pressure 132/72 116/58 L 117/55 L Pulse Oximetry 98 97 98 10/14/18 08:00 Temperature 99.8 F H Pulse Rate 64 Respiratory Rate 16 Blood Pressure 112/59 L Pulse Oximetry 94 L Intake & Output 10/13/18 10/14/18 10/14/18 18:59 06:59 18:59 Intake Total 1500 / 1500 50 / 50 Balance 1500 / 1500 50 / 50 Weight 52.8 kg Intake: IV 1500 / 1500 50 / 50 NS Inj 1,000 ML @ 125 mls/hr IV 400 / 400 .CONT .Q8H YESSENIA Rx#:[id number] Zosyn 3.375 GM Premix 50 ML @ 50 / 50 100 mls/hr IV.SIG Q6H YESSENIA Rx#: [id number] Zosyn 4.5 GM Premix 4.5 gm In 100 / 100 100 ml @ 200 mls/hr IV.SIG ONCE ONE Rx#:[id number] NS Inj 500 ML @ 1000 mls/hr IV. 1000 / 1000 SIG BOLUS YESSENIA Rx#:[id number] Oral 0 / 0 Other: # Voids 1 Date of Last Bowel Movement 10/13/18 10/13/18 Weight On Admission 54.1 kg Narrative: GENERAL: Very pleasant 62 year old female resting in bed in no acute distress. SKIN: Warm and dry. HEAD: Atraumatic. Normocephalic. EYES: Pupils equal and round. No scleral icterus. No injection or drainage. ENT: No nasal bleeding or discharge. Mucous membranes pink and moist. NECK: Trachea midline. CARDIOVASCULAR: Regular rate and rhythm. RESPIRATORY: No accessory muscle use. Clear to auscultation. Breath sounds equal bilaterally. GASTROINTESTINAL: Abdomen soft, nondistended. RIGHT lower quadrant tenderness with palpation. No visible scars. MUSCULOSKELETAL: Extremities without clubbing, cyanosis, or edema. No obvious deformities. NEUROLOGICAL: Awake and alert. No obvious cranial nerve deficits. Motor grossly within normal limits. Five out of 5 muscle strength in the arms and legs. Normal speech. PSYCHIATRIC: Appropriate mood and affect; insight and judgment normal. Results - Labs 10/13/18 23:30 10/13/18 23:30 Laboratory Results - last 24 hr 10/13/18 10/13/18 10/14/18 23:30 23:30 00:45 CBC w Diff Auto diff final WBC 13.2 H RBC 4.43 Hgb 14.0 Hct 39.7 MCV 89.7 MCH 31.6 MCHC 35.3 RDW 12.6 Plt Count 244 MPV 8.2 Neut % (Auto) 88.4 H Lymph % (Auto) 8.1 L [place] % (Auto) 1.7 Eos % (Auto) 0.7 Baso % (Auto) 1.1 Neut # (Auto) 11.7 H Lymph # (Auto) 1.1 [place] # (Auto) 0.2 Eos # (Auto) 0.1 Baso # (Auto) 0.1 WBC Differential . Differential Comment . Sodium 140 Potassium 3.5 Chloride 104 Carbon Dioxide 26.3 Anion Gap 10 BUN 15 Creatinine 0.88 Estimated GFR 65 L Random Glucose 110 H Calcium 9.6 Magnesium 2.2 Total Bilirubin 0.5 AST 23 ALT 29 Alkaline Phosphatase 67 Troponin I Less than 0.02 L Total Protein 7.8 Albumin 4.3 Lipase 109 Urine Color Yellow Urine Clarity Clear Urine pH 7.5 Ur Specific [place] Less/equal 1.005 Urine Protein Negative Urine Glucose (UA) Negative Urine Ketones Negative Urine Occult Blood Trace Urine Nitrate Negative Urine Bilirubin Negative Urine Urobilinogen 0.2 Ur Leukocyte Esterase Negative Urine RBC 0-3 Urine WBC 0-5 Ur Squamous Epith Cells 0-5 Micro UA Comment Culture not ind Ur Microscopic Review Microscopic reviewed Urine Culture Comments Culture not ind - Imaging Imaging: ITS Impressions Chest X-Ray 10/13/18 23:15 CONCLUSION: No acute cardiopulmonary disease identified. Abdomen/Pelvis CT 10/14/18 23:15 CONCLUSION: 1. Fluid-filled appendix with borderline dilatation. Evaluation for subtle surrounding inflammatory changes difficult this case due to the mild diffuse stranding throughout the abdominal mesentery. Punctate calcific density at the base of the appendix suggesting a small appendicolith. Findings are suspicious for early appendicitis. No evidence of abscess or free air. 2. Nonspecific mild distal gastric wall thickening. CT scan - abdomen: image reviewed Assessment and Plan - Assessment (1) Appendicitis Code(s): K37 - Unspecified appendicitis Status: Acute Qualifiers: Appendicitis type: acute appendicitis Acute appendicitis type: unspecified acute appendicitis type Qualified Code(s): K35.80 - Unspecified acute appendicitis Plan: 62 year old female with appendicitis -Plan for OR this afternoon for laparoscopic appendectomy -Obtain consents -NPO -Continue Zosyn -Continue IVF -Procedure explained including risks and benefits-- all questions answered -Thank you for this consult; We will continue to follow - Plan Patient seen and examined. Chart and imaging reviewed. Acute appendicitis. Recommend immediate appendectomy. Risks and benefits reviewed with patient and her significant other. They agree to proceed and sign consents. I certify that I personally saw the patient and reviewed the care plan with her. Bj Day MD FACS Discussed Condition With: Dr. Shay Boston and Eduardo CARDOZA Ms., Cha
[2018-10-14] MEDS ORDERED: fentaNYL Citrate Inj 250 MCG/5 ML Ampul ONE (11:49)
[2018-10-14] MEDS ORDERED: Sugammadex Inj 200 MG/2 ML Vial IV.PUSH ONE (11:50)
[2018-10-14] MEDS ORDERED: Bupivacaine/Epinephrine PF Inj 0.5% 30 ML Vial ONE (12:22)
[2018-10-14] MEDS ORDERED: Chlorhexidine Gluconate 2% 1 Pack (2 Cloths) TOPICAL ONE (13:06)
[2018-10-14] MEDS ORDERED: Metoprolol Tartrate 25 MG Tablet PO ONE (13:06)
[2018-10-14] MEDS ORDERED: Lidocaine PF 1% Inj 5 ML Syringe INFILTRATN ONE (13:43)
[2018-10-14] MEDS ORDERED: Ketorolac Inj 30 MG/ML (IVP) Vial IV.PUSH ONE (13:43)
[2018-10-14] MEDS ORDERED: Ketorolac Inj 30 MG/ML (IVP) Vial IV.PUSH PRN (14:20)
[2018-10-14 14:57] VITALS: O2SAT 95
--- NOTE | 2018-10-14 14:57 | MP ---
cc: Bj Day MD DATE OF OPERATION: 10/14/2018 PREOPERATIVE DIAGNOSIS: Acute appendicitis. POSTOPERATIVE DIAGNOSIS: Acute appendicitis. PROCEDURE PERFORMED: Laparoscopic appendectomy. SURGEON: Bj Day MD ANESTHESIA: General endotracheal. COMPLICATIONS: None. INDICATIONS FOR PROCEDURE: Whitney Vincent is a very pleasant 62-year-old female who presented to the emergency department at [place] last evening complaining of right lower quadrant abdominal pain. She underwent a CT scan of the abdomen and pelvis, which demonstrated early acute appendicitis. Dr. Lyons was notified. Dr. Lyons was unavailable and asked me if I could see the patient. I came to see the patient today and discussed options with her and her at the bedside. I recommended immediate appendectomy. They were agreeable. Risks and benefits of the procedure were discussed with her, and she was agreeable. DETAILS OF PROCEDURE: The patient was identified, brought to the operating room, placed supine on the operating table. After adequate general anesthesia was achieved with LMA, the anterior abdomen was prepped and draped in standard surgical fashion. Infraumbilical space anesthetized with 0.25% Marcaine. A semilunar infraumbilical incision was made. Dissection was carried down through subcutaneous tissue to midline fascia. Midline fascia was then incised sharply. A blunt hemostat was then used to gain access to the abdominal cavity without difficulty. Blunt 5 mm trocar was then inserted, and the abdomen was insufflated to 15 mmHg using CO2 gas. Next, two 5 mm trocars were placed in the lower midline under direct vision after anesthetizing the skin and subcutaneous tissue with 0.25% Marcaine. Attention was directed to the right lower quadrant where an inflamed appendix was identified. Appendix was then elevated superiorly. The mesentery was taken down with the Harmonic scalpel to the level of the cecal base. Once the cecal base was achieved, the appendix was then encircled with a 2-0 PDS Endoloop x2. Distal appendix was then transected with the Harmonic scalpel. The 5 mm infraumbilical port was then removed and a 7 mm EndoCatch bag was inserted. The appendix was placed into the EndoCatch bag and brought out through the infraumbilical port. Appendix was inspected and sent to Pathology for analysis. Next, the abdominal cavity was rinsed out with 500 mL of normal saline solution. Stump was carefully visualized. Endoloops were intact without evidence of a leak. There was no bleeding noted from the mesentery. Irrigant was then removed and noted to be clear. The cecum was returned to its anatomic position in the right lower quadrant. The omentum was placed over it. All ports were removed under direct vision. The 5 mm port site at the infraumbilical region was closed with 0 Vicryl suture [id number]. Skin was closed with 4-0 Vicryl. The patient tolerated the procedure well, was awakened and brought back to recovery room in stable condition. Bj MD ESTEFAYN Boyd/jun , 02:34 PM , 02:42 PM
[2018-10-14 16:49] VITALS: BP 117/61; PULSE 57; RESP 16; TEMP 97.5
[2018-10-15] MEDS ORDERED: Pantoprazole Sodium 20 MG DR Tablet PO SCH (09:00)
--- NOTE | 2018-10-16 07:32 | ECG ---
Date Performed: 10/14/2018 Time Performed: 13:06:22 PTAGE: 62 years EKG: Sinus rhythm MODERATE T-WAVE ABNORMALITY, CONSIDER LATERAL ISCHEMIA ABNORMAL ECG PREVIOUS ECG 03/04/2018 8.22: Com pared to PREVIOUS TRACING , T-wave abnormality is new DOCTOR: Jay Huang Interpretating Date/Time 10/16/2018 07:30:07
== END 2018-10-14 17:32 | disposition home or self-care (01) ==
LOC: PHED 23:02 → PHEDA 23:02 → NEDA 10-14 01:19 → PHEDA 10-14 02:57 → PH3 10-14 03:03
PROVIDERS: ADMIT Hospitalist; ATTEND Hospitalist
PROC: LAPAPPY (ICD-10-PCS; 2018-10-14 13:18)